=== PATIENT | female | born 1970 | race Caucasian/White ===

== ENCOUNTER → 2019-03-12 14:27 | Outpatient (CLI) | payer BC, SELFPAY ==
--- NOTE | 2019-03-12 14:35 | XR_ITS ---
XR shoulder RT min 2V HISTORY: ITS.REASON: RT SHOULDER PAIN ORDERING PHYSICIAN: Fatimah Saenz APRN PATIENT AGE: 48 years Comparison: None FINDINGS: No fracture or dislocation. There is a small area of sclerosis involving the base of the acromion as seen on the scapular Y view. This measures 8 mm and may be due to bone island. No lytic changes apparent. No significant degenerative/arthritic change. IMPRESSION: No acute finding. Possible small bone island at the base of the acromion.
== END ==
PROVIDERS: PCP Nurse Practitioner; Visit Provider Nurse Practitioner
DX: M25.511 Pain in right shoulder (principal)
CPT/HCPCS: 73030

== ENCOUNTER 2019-05-27 14:00 | Outpatient (RCR) | payer BC, SELFPAY ==
--- NOTE | 2019-04-07 15:07 | HMH.OTOPEV ---
OT Inpatient Evaluation Rehab OT Outpatient Eval Start: 04/07/19 14:55 Freq: Status: Active Protocol: Document 04/07/19 14:55 RMARSHALL (Rec: 04/07/19 15:07 [id number] Electronically Signed By Angelique Salmeron OT 04/07/19 14:55 Outpatient Therapy Subjective History Subjective History Pt is a 48 year old female who reports to therapy for initial evaluation to right shoulder/arm. Pt does not recall a specific injury causing pain in her bicep area as well as decreased motion. Pt explains her pain began in Feb, 2019. Pt demonstrates with decreased AROM, PROM, and strength upon evaluation. Pt will continue to be seen twice a week in order to address all deficits. Chief Complaint Pain,Stiff,Weakness Symptom Type Ache,Sharp,Stabbing,Numbness Symptoms Relieved By Rest/Positioning Symptoms Aggravated By Physical Activity,Twisting, Lifting Prior Functional Limitations None Current Functional Limitations Reaching,Lifting,Housework, Dressing,Driving,Sleeping, Squatting,Recreation Activity, Bending/Stooping Symptom Description Intermittent,Activity Dependent Level of pain today (0-10) 0 Pain scale - at its best (0-10) 0 Pain scale - at its worst (0-10) 5 Shoulder/Elbow Eval Shoulder Objective Measurements Shoulder ROM Right Shoulder ROM Limitations Pain Shoulder Abduction Active Range of 117 degrees Motion (degrees) Shoulder Flexion Active Range of Motion 120 degrees (degrees) Query Text: Shoulder External Rotation Active Range 65 degrees of Motion (degrees) Shoulder Internal Rotation Active Range 75 degrees of Motion (degrees) pain with active ROM shoulder exam right standard pain with passive ROM shoulder exam right standard decreased ROM shoulder exam standard right full ROM shoulder exam standard left Shoulder MMT Shoulder Abduction Strength Grade 4- Good- Shoulder Extension Strength Grade 4- Good- Shoulder Flexion Strength Grade 4 Good Shoulder External Rotation Strength 3+ Fair+ Grade Shoulder Internal Rotation Strength 3+ Fair+ Grade Shoulder Strength Patient
--- NOTE | 2019-05-15 14:54 | HMH.RHREAS ---
Rehab Reassessment Rehab OP Re-assessment Start: 05/15/19 14:18 Freq: Status: Active Protocol: Document 05/15/19 14:19 HILARIA (Rec: 05/15/19 14:54 HILARIA [id number]) Electronically Signed By Angelique Salmeron OT 05/15/19 14:19 Rehab Re-assessment Subjective Subjective Still have a lot of pain. Objective Objective Notes Pt continues to be seen twice a week in order to engage in therapy sessions for right shoulder. Pt engages in AROM/ AAROM exercises to increase AROM. Pt receives PROM manual stretching to right shoulder in flexion, abduction, ER, and IR. Pt does receive modalities in order to decrease pain/inflammation. Assessment Progress Assessment Slower Than Expected Assessment Notes Pt's AROM has improved minimally. However, pt is still very limited. Pt's pain has continued to remain the same since initial eval. Pt believes she has made minimal progress since starting. Therapist recommended pt have an ortho consult in order to get a possible MRI. Current L shoulder AROM Flex: 120 degrees Abd: 125 degrees ER: 70 degrees IR: 75 degrees Patient goals met N/A Goals Not Met STG and LTG Revised Goals Continue progressing towards goals written on initial eval. Plan Plan Continue with OT plan of care. Frequency of Therapy 2x's a week Duration of therapy 4 more weeks. Time and Billing Re-Eval Time 15 Re-Eval Billing Units 1 PHYSICIAN CERTIFICATION: I certify the specified therapy services for No Kinsey are required, authorized, and reviewed every 30 days.
== END 2019-05-27 14:05 | disposition home or self-care (01) ==
LOC: OT 14:00
PROVIDERS: Visit Provider Nurse Practitioner
DX: M25.511 Pain in right shoulder (principal)
CPT/HCPCS: 97014; 97033; 97110; 97140; 97164; 97165; G0283

== ENCOUNTER 2022-01-22 12:12 | Emergency (ER) | payer BC, SELFPAY ==
[2022-01-22 12:15] VITALS: BP 140/88; PULSE 101; RESP 17; TEMP 36.9; O2SAT 98; BMI 30.4
--- NOTE | 2022-01-22 12:26 | HMH.EDUTC ---
[facility] [place] Disposition Clinical Impression: Upper respiratory infection, viral Disposition: Home, Self-Care Condition on Discharge: Good Instructions: DI for Viral Upper Respiratory Infection -- Adult Additional Instructions: No sign of a bacterial infection. Likely viral. Viruses can take 7-14 days to run their course. Nasal saline and bulb syringe or nose Pat to remove nasal drainage to help with nasal congestion. Hard to eat, drink, sleep with nasal congestion so important to keep this cleaned out. Monitor temp. Tylenol or Motrin as needed for pain or fever Encourage fluids, water, Gatorade, Powerade, Pedialyte if /toddler/child Warm salt water gargles Warm fluids Sore throat lozenges Sleep elevated Humidifier/vaporizer Follow-up immediately for new or worsening symptoms or no noticeable improvement over the next 48-72 hours. Prescriptions: predniSONE [Prednisone 20mg Tab] 20 mg PO BID #10 tab Transmission Status: Pending to [id number] Referrals: Liliam Flores APRN [Primary Care Provider] - Time of Disposition: 12:28 Medical Decision Making - Fox Inquiry Pt receiving controlled substance: No [facility] [place] HPI - General Chief complaint: Urgent Treatment Center Stated complaint: cough, congestion Time Seen by Provider: 01/22/22 12:26 Mode of Arrival: Ambulatory Source of Information: Patient Limitations: No Limitations - History of Present Illness Provider Complaint: 51 yr old fmelae presents for nasal congestion,cough,horseness and clear nasal drainage - Related Data Home Medications Medication Instructions Recorded Confirmed lisinopril 20 mg tablet 20 mg PO DAILY 06/30/19 06/30/19 metformin 500 mg tablet 500 mg PO BID 06/30/19 06/30/19 Previous Rx's Medication Instructions Recorded predniSONE [Prednisone 20mg 20 mg PO BID #10 tab 01/22/22 Tab] Allergies Allergy/AdvReac Type Severity Reaction Status Date / Time PENICILLIN Allergy Unknown Uncoded 06/30/19 15:34 [facility] History - Hepatitis A Screen Attestation statement:: This patient has been screened for Hepatitis A risk factors. I have reviewed the patient's past medical history: Yes Other Surgeries: Yes: - Social History Smoking Status: Never smoker Alcohol Intake: never Occupational Status: employed ROS Obtained: Yes Systems reviewed as appropriate & no additional complaints - Constitutional Constitutional: Reports system reviewed and no additional complaints, except as docu, Denies fever(s) - Eyes Eyes: Reports system reviewed and no additional complaints, except as docu, Denies dry eyes - ENT Ears, Nose, Mouth, and Throat: Reports system reviewed and no additional complaints, except as docu, Denies abnormal hearing, Reports nasal congestion, Reports nasal discharge, Reports post nasal drip - Cardiovascular Cardiovascular: Reports system reviewed and no additional complaints, except as docu, Denies chest pain - Respiratory Respiratory: Reports system reviewed and no additional complaints, except as docu, Reports cough - Gastrointestinal Gastrointestingal: Reports: system reviewed and no additional complaints, except as docu. Denies: abdominal pain - Musculoskeletal Musculoskeletal: Reports system reviewed and no additional complaints, except as docu, Denies joint pain - Integumentary/Breasts Skin/Breast: Reports system reviewed and no additional complaints, except as docu, Denies rash - Neurologic Neurologic: Reports system reviewed and no additional complaints, except as docu, Denies dizziness - Endocrine Endocrine: Reports system reviewed and no additional complaints, except as docu, Denies fatigue - Hematologic/Lymphatic Henatologic/Lymphatic: Reports system reviewed and no additional complaints, except as docu, Denies lymphadenopathy - Allergic/Immunologic Allergic/Immunologic: Reports system reviewed and no additional complaints, except as docu, Denies itchy eye
[2022-01-22 12:29] VITALS: BP 140/88; PULSE 101; RESP 17; TEMP 36.9; O2SAT 98
== END 2022-01-22 12:30 | disposition home or self-care (01) ==
PROVIDERS: Emergency Provider Nurse Practitioner Family; PCP Nurse Practitioner Family
DX: J06.9 Acute upper respiratory infection, unspecified (principal); Z79.84 Long term (current) use of oral hypoglycemic drugs; Z79.52 Long term (current) use of systemic steroids; Z88.0 Allergy status to penicillin
CPT/HCPCS: 99213; G0463

== ENCOUNTER 2022-06-14 14:00 | Outpatient (RCR) | payer BC, SELFPAY | END 2022-06-14 14:05 | disposition home or self-care (01) | LOC: OT 14:00 | PROVIDERS: PCP Nurse Practitioner Family; Visit Provider Physician Assistant | DX: M75.02 Adhesive capsulitis of left shoulder (principal) | CPT/HCPCS: 97010; 97014; 97035; 97110; 97140; 97164; 97165; 97530; G0283 ==

== ENCOUNTER → 2023-05-07 14:03 | Outpatient (CLI) | payer BC, SELFPAY ==
--- NOTE | 2023-05-07 14:08 | XR_ITS ---
FINAL REPORT CLINICAL HISTORY: INJURY,FALL ON THE 22ND UNABLE TO EXTEND LEG FINDINGS: LEFT HIP SERIES A single view of the left hip and a single view of the pelvis were obtained. There is a comminuted fracture of the femoral neck. There is proximal migration of the main distal fracture fragment. There is no evidence of dislocation. There is no soft tissue abnormality. IMPRESSION: Comminuted fracture of the femoral neck. Reviewed, Interpreted and Dictated by Keo Toribio III, MD Transcribed by Alvaro Marie Authenticated and [facility]
--- NOTE | 2023-05-07 14:09 | XR_ITS ---
FINAL REPORT CLINICAL HISTORY: INJURY, FALL ON THE , PATIENT UNABLE TO EXTEND LEG FINDINGS: LEFT FEMUR SERIES Three views of the left femur were obtained. Suboptimal radiographs were obtained. There is no acute fracture or dislocation. The joint spaces are preserved. There is no soft tissue abnormality. IMPRESSION: No acute abnormality. Reviewed, Interpreted and Dictated by Keo Toribio III, MD Transcribed by Alvaro Marie Authenticated and [facility]
== END ==
PROVIDERS: PCP Nurse Practitioner Family; Visit Provider Nurse Practitioner Family
DX: M25.552 Pain in left hip (principal); S79.912A Unspecified injury of left hip, initial encounter; M79.605 Pain in left leg; S89.92XD Unspecified injury of left lower leg, subsequent encounter
CPT/HCPCS: 73502; 73552

== ENCOUNTER → 2023-07-27 08:58 | Outpatient (CLI) | payer BC, SELFPAY ==
--- NOTE | 2023-07-27 09:10 | XR_ITS ---
FINAL REPORT TECHNIQUE: Bone densitometry calculations of the lumbar spine and left hip were obtained. CLINICAL HISTORY: hx left HIP FRACTURE FINDINGS: Using L1-4, the bone mineral density of the spine is 1.133 g/cm2, corresponding to T-score of 0.8. Using the right hip, the bone mineral density of the femoral neck is 0.755 g/cm2, corresponding to a T-score of -0.8. Using the 1/3 radius, the bone mineral density is 0.708 g/cm2, corresponding to a T-score of 0.2. NOTE: T-score: Standard deviation compared with peak bone mass of young adult mean. *Following the recommendations of the International Society of Bone densitometry, classification of hip BMD is based on the lower of two T-scores; total hip or femoral neck. IMPRESSION: Normal bone mineral density. FRAX was not reported because all of the T-scores are at or above -1.0. Reviewed, Interpreted and Dictated by Keo Toribio III, MD Transcribed by Katarzyna Jacobsen Authenticated and . [facility]
== END ==
LOC: RAD 08:58
PROVIDERS: PCP Nurse Practitioner Family; Visit Provider Nurse Practitioner Family
DX: S72.009A Fracture of unspecified part of neck of unspecified femur, initial encounter for closed fracture (principal); Y99.9 Unspecified external cause status
CPT/HCPCS: 77080

== ENCOUNTER 2023-08-03 15:00 | Outpatient (RCR) | payer BC, SELFPAY | END 2023-08-03 16:00 | disposition home or self-care (01) | LOC: PT 15:00 | PROVIDERS: PCP Nurse Practitioner Family; Visit Provider Orthopaedic Surgery | DX: M25.552 Pain in left hip (principal) | CPT/HCPCS: 97110; 97163; 97530 ==